=== PATIENT | male | born 1980 | race African-American/Black ===

== ENCOUNTER 2017-12-12 08:47 | Emergency (ER) | payer SELFPAY ==
[2017-12-12 08:53] VITALS: BP 142/83
--- NOTE | 2017-12-12 09:17 | ER Document Report ---
HPI - HPI Patient complains to provider of: Flu symptoms Onset: Other - 3-4 days Onset/Duration: Persistent Quality of pain: Achy Severity: Severe Pain Level: 4 Context: Patient presents emergency department with complaints of flulike symptoms. Reports his girlfriend had the same symptoms recently. Reports body aches. Is unsure of fever reports he has had hot and cold flashes. Reports diarrhea approximately 4 times in the last 4 days. Denies vomiting. Patient received his flu vaccine this year. Also reports sore throat but has been eating and drinking without problems. Speaks in a clear voice. Associated Symptoms: Diarrhea, Sore throat Exacerbated by: Denies Relieved by: Denies Similar symptoms previously: No Recently seen / treated by doctor: No - CONSTITUTIONAL Constitutional: REPORTS: Fever, Chills - EENT EENT: REPORTS: Sore Throat, Ear Pain - "popping" - RESPIRATORY Respiratory: REPORTS: Coughing Past Medical History - General Information source: Patient - Social History Smoking Status: Current Every Day Smoker Cigarette use (# per day): No Frequency of alcohol use: None Drug Abuse: None Lives with: Friend Family History: None Patient has suicidal ideation: No Patient has homicidal ideation: No - Medical History Medical History: Negative Renal/ Medical History: Denies: Hx Peritoneal Dialysis Past Surgical History: Reports: Hx Orthopedic Surgery - bilateral arms - Immunizations Immunizations up to date: Yes History of Influenza Vaccine for 07/2017 - 12/2017 Season: Yes Vertical Provider Document - CONSTITUTIONAL Agree With Documented VS: Yes Exam Limitations: No Limitations General Appearance: WD/WN, No Apparent Distress - nontoxic looking - INFECTION CONTROL TRAVEL OUTSIDE OF THE [place] IN LAST 30 DAYS: No - HEENT HEENT: Atraumatic, Normal ENT Exam, Normocephalic. negative: Conjuctival Injection, Pharyngeal Exudate, Pharyngeal Erythema - clear voice, swallows without difficulty, no exudate, no trismus, good airway, Tympanic Membrane Red, Tympanic Membrane Bulging - NECK Neck: Normal Inspection, Supple. negative: Lymphadenopathy-Left, Lymphadenopathy-Right - RESPIRATORY Respiratory: Breath Sounds Normal, No Respiratory Distress O2 Sat by Pulse Oximetry: 99 - CARDIOVASCULAR Cardiovascular: Regular Rate, Regular Rhythm - GI/ABDOMEN Gastrointestinal: Abdomen Soft, Abdomen Non-Tender - BACK Back: Normal Inspection - MUSCULOSKELETAL/EXTREMETIES Musculoskeletal/Extremeties: [place] - NEURO Level of Consciousness: Awake, Alert, Appropriate Motor/Sensory: No Motor Deficit - DERM Integumentary: Warm, Dry Course - Re-evaluation Re-evalutation: 12/12/17 09:26 Patient looks nontoxic. He was instructed on Tylenol importance of pushing fluids [id number] antidiarrheal medication as well as foods that will help reverse diarrhea. Patient verbalized understanding to all instructions. He was instructed to return to the emergency department for concerns or worsening of symptoms. - Vital Signs Vital signs: Temp Pulse Resp BP Pulse Ox 98.7 F 72 16 142/83 H 99 12/12/17 08:51 12/12/17 08:51 12/12/17 08:51 12/12/17 08:51 12/12/17 08:51 Discharge - Discharge Clinical Impression: Flu-like symptoms Condition: Stable Disposition: HOME, SELF-CARE Instructions: Acetaminophen, Influenza ([facility]) Additional Instructions: *You have been evaluated for flu like symptoms *Increase fluid intake as discussed *Monitor your temperature, take Tylenol as indicated *Follow up with a primary care provider within 5 days for recheck *Return to ED for worsening condition, changes, needs, concerns Forms: Return to Work
== END 2017-12-12 09:23 | disposition home or self-care (01) ==
LOC: ER 08:47
DX: R05 Cough (principal); J02.9 Acute pharyngitis, unspecified; R19.7 Diarrhea, unspecified; F17.200 Nicotine dependence, unspecified, uncomplicated
CPT/HCPCS: 99283